=== PATIENT | male | born 1950 | race Caucasian/White ===

== ENCOUNTER 2017-11-17 21:37 | Emergency (ER) | payer MEDICARE ==
[~2017-11-17] VITALS: Ht 175.3 cm; Wt 91.0 kg
[2017-11-18] MEDS ORDERED: PERCOCET 5/325M1 TAB PO (01:19)
[2017-11-18] MEDS ORDERED: ZPAK PO (01:24)
[2017-11-18 01:40] VITALS: BP 146/70
== END 2017-11-18 01:40 | disposition home or self-care (01) ==
LOC: ED 21:37
DX: S22.32XA Fracture of one rib, left side, initial encounter for closed fracture (principal); W10.9XXA Fall (on) (from) unspecified stairs and steps, initial encounter; Y92.009 Unspecified place in unspecified non-institutional (private) residence as the place of occurrence of the external cause; J40 Bronchitis, not specified as acute or chronic; R05 Cough